=== PATIENT | male | born 1980 | race Caucasian/White ===

== ENCOUNTER → 2016-10-21 | Outpatient (CLI) | payer BC ==
--- NOTE | 2016-10-21 13:21 | RAD ---
Lumbar spine, 5 views, 10/21/2016: History: Low back pain with leg numbness There is a transitional-type vertebra at the lumbosacral junction compatible with a lumbarized S1 segment. There are minimal scattered marginal spurs. There are mild sclerotic changes involving the facet joints in the lower lumbar spine. No fracture or dislocation is evident. The paraspinous soft tissues are unremarkable. IMPRESSION: 1. Mild degenerative change. 2. No acute bony abnormality is detected.
== END | disposition home or self-care (01) ==
LOC: DXRADRC 09:43
PROVIDERS: ATTEND Physician Assistant Medical
DX: M47.896 Other spondylosis, lumbar region (principal); R20.0 Anesthesia of skin
CPT/HCPCS: 72110